=== PATIENT | female | born 1965 | race African-American/Black ===

== ENCOUNTER 2020-06-28 05:40 | Emergency (ER) | payer OTHER ==
[~2020-06-28] VITALS: Ht 160 cm; Wt 79.4 kg
[2020-06-28] MEDS ORDERED: OXYCONTIN10 M1 PO (06:09)
[2020-06-28] MEDS ORDERED: PERCOCET 10-321 EAC1 PO (06:10)
[2020-06-28 08:12] LABS: URINE BILIRUBIN NEGATIVE (Negative); URINE BLOOD 1+ (Negative); URINE CLARITY CLEAR; URINE COLOR YELLOW; URINE GLUCOSE-RANDOM* NEGATIVE (Negative); URINE KETONES NEGATIVE (Negative); URINE LEUKOCYTES-REFLEX NEGATIVE (Negative); URINE NITRITE-REFLEX NEGATIVE (Negative); URINE PROTEIN (DIPSTICK) NEGATIVE (Negative); URINE SPECIFIC GRAVITY 1.025 (1.005-1.035); URINE UROBILINOGEN 0.2 E.U./dl (0.2-1.0)
[2020-06-28 08:30] LABS: SQUAMOUS >10 Many /LPF (0-3)
[2020-06-28 08:32] LABS: URINE RBC 3-10 Few /HPF (0-2)
[2020-06-28 08:34] LABS: BACTERIA-REFLEX 1-9 Few /HPF (None Seen); CASTS None Seen /LPF (None Seen); CRYSTALS None Seen /LPF (None Seen); URINE WBC-REFLEX 0-5 Rare /HPF (0-5)
[2020-06-28] MEDS ORDERED: ZOFRAN ODT4 MG PO (08:42)
[2020-06-28] MEDS ORDERED: TESSALON PERLE100 MG PO (08:42)
[2020-06-28] MEDS ORDERED: COMPAZINE10 M2 PO (08:45)
[2020-06-28 08:56] VITALS: BP 132/85
== END 2020-06-28 09:17 | disposition home or self-care (01) ==
LOC: ER 05:40
PROVIDERS: Emergency Medicine
DX: B34.9 Viral infection, unspecified (principal); R19.7 Diarrhea, unspecified; Z20.828 Contact with and (suspected) exposure to other viral communicable diseases; M79.7 Fibromyalgia; F31.9 Bipolar disorder, unspecified; Z79.899 Other long term (current) drug therapy; Z88.6 Allergy status to analgesic agent; Z88.8 Allergy status to other drugs, medicaments and biological substances